=== PATIENT | female | born 1975 ===

== ENCOUNTER 2016-11-01 17:56 | Emergency (ER) | payer OTHER, SELFPAY ==
[2016-11-01 18:12] VITALS: BP 126/79; PULSE 72; RESP 18; TEMP 98.7; O2SAT 99
--- NOTE | 2016-11-01 18:29 | ED PDOC ---
HPI: Back Time Seen by Provider: 11/01/16 18:13 Chief Complaint (Nursing): Back Pain Chief Complaint (Provider): Back pain History Per: Patient History/Exam Limitations: no limitations Onset/Duration Of Symptoms: Days (1) Current Symptoms Are (Timing): Still Present Quality Of Discomfort: "Pain" Additional Complaint(s): 40 y/o female presents to the ED for evaluation of lower back pain since yesterday. Patient reports she was reaching for a box on a high shelf and she twisted her body causing pain to low back. She reports taking over the counter Aly's for her pain with has helped only minimally. She denies any numbness, tingling, and offers no additional medical complaints. Patient states that pain does not radiate to legs and patient denies any acute bowel or bladder dysfunction. Past Medical History Reviewed: Historical Data, Nursing Documentation, Vital Signs Vital Signs: Last Vital Signs Temp 98.7 F 11/01/16 18:08 Pulse 72 11/01/16 18:08 Resp 18 11/01/16 18:08 BP 126/79 11/01/16 18:08 Pulse Ox 99 11/01/16 18:08 - Medical History PMH: No Chronic Diseases - Surgical History Surgical History: - Family History Family History: States: No Known Family Hx - Living Arrangements Living Arrangements: With Family - Social History Current smoker - smoking cessation education provided: No Alcohol: None Drugs: Denies - Home Medications Home Medications: Ambulatory Orders Medication Instructions Recorded Omeprazole Magnesium [Prilosec Otc] 20 mg PO QD5 #30 tcp 01/12/14 Cyclobenzaprine [Cyclobenzaprine 10 mg PO TID PRN #20 tab 11/01/16 HCl] Naproxen [Naprosyn] 500 mg PO BID #20 tab 11/01/16 - Allergies Allergies/Adverse Reactions: Allergies Allergy/AdvReac Type Severity Reaction Status Date / Time No Known Allergies Allergy Verified 01/12/14 12:48 Review of Systems ROS Statement: Except As Marked, All Systems Reviewed And Found Negative Musculoskeletal: Positive for: Back Pain (s/p twisting injury sustained yesterday) Neurological: Negative for: Numbness Physical Exam - Reviewed Nursing Documentation Reviewed: Yes Vital Signs Reviewed: Yes - Physical Exam Appears: Positive for: Well, Non-toxic, No Acute Distress Head Exam: Positive for: ATRAUMATIC, NORMAL INSPECTION, NORMOCEPHALIC Skin: Positive for: Normal Color, Warm, DRY Eye Exam: Positive for: Normal appearance Neck: Positive for: Normal Cardiovascular/Chest: Positive for: Regular Rate, Rhythm Respiratory: Positive for: Normal Breath Sounds. Negative for: Respiratory Distress Back: Positive for: Other (midline lumbar tenderness with no step off, negative bilateral straight leg raise). Negative for: L CVA Tenderness, R CVA Tenderness Extremity: Negative for: Deformity, Swelling Neurologic/Psych: Positive for: Alert, Oriented - Laboratory Results Urine POC: Negative - ECG O2 Sat by Pulse Oximetry: 99 (RA) Pulse Ox Interpretation: Normal - Other Rad L/S Spine X-ray X-Ray: Interpreted by Me, Viewed By Me X-Ray Interpretation: no fx, no dis Medical Decision Making Medical Decision Making: Time: 1819 Impression: low back pain Plan: * XR Lumbar spine * Flexeril 10 mg PO * Toradol 30 mg IM * UDip * Reassess Patient feels better after meds given. She is aware of x-ray results. All questions answered. Patient given prescriptions for Naprosyn and Flexeril. She was advised to follow-up with orthopedist, referral provided. Scribe Attestation: Documented by Amara Bashir acting as a scribe for LUIS ENRIQUE Negron Provider Attestation: All medical record entries made by the Scribe were at my direction and personally dictated by me. I have reviewed the chart and agree that the record accurately reflects my personal performance of the history, physical exam, medical decision making, and the department course for this patient. I have also personally directed, reviewed, and agree with the discharge instructions and disposition. Disposition - Clinical Impression Clinical Impression: Back strain, Back pain - Patient ED Disposition Is Patient to be Admitted: No Counseled Patient/Family Regarding: Studies Performed, Diagnosis, Need For Followup, Rx Given - Disposition Referrals: [facility] [Outside] Dago Mallory III, MD [Staff Provider] - Disposition: Routine/Home Disposition Time: 19:27 Condition: STABLE Additional Instructions: Take rx med as directed as needed for pain. Follow up in 2-3 days with primary care doctor or with orthopedist. Prescriptions: Cyclobenzaprine [Cyclobenzaprine HCl] 10 mg PO TID PRN #20 tab PRN Reason: Muscle Spasm Naproxen [Naprosyn] 500 mg PO BID #20 tab Instructions: Back Pain (ED), Muscle Strain (ED) Forms: [facility] ED School/Work Excuse
--- NOTE | 2016-11-02 08:11 | RAD ---
PROCEDURE: Radiographs of the Lumbar Spine. HISTORY: trauma COMPARISON: No prior. FINDINGS: BONES: Normal alignment. No listhesis. No fracture. Partial sacralization of the last lumbar element. DISC SPACES: Unremarkable. OTHER FINDINGS: None. IMPRESSION: No acute findings related to/accounting for the clinical presentation. Concordant results with the preliminary interpretation rendered by the emergency department physician procedure.
== END 2016-11-01 20:15 | disposition home or self-care (01) ==
LOC: H.ER 17:56
DX: S39.012A Strain of muscle, fascia and tendon of lower back, initial encounter (principal); X50.9XXA Other and unspecified overexertion or strenuous movements or postures, initial encounter; Y99.0 Civilian activity done for income or pay
CPT/HCPCS: 72100; 81025; 96372; 99281; J1885

== ENCOUNTER 2017-06-08 20:34 | Emergency (ER) | payer OTHER, SELFPAY ==
[2017-06-08 20:44] VITALS: BP 120/81; PULSE 81; RESP 16; TEMP 98; O2SAT 99
--- NOTE | 2017-06-08 23:11 | ED PDOC ---
HPI: Eye Injury/Pain Time Seen by Provider: 06/08/17 20:49 Chief Complaint (Nursing): Eye Problem Chief Complaint (Provider): Bilateral eye pain after washing bathroom with bleach History Per: Patient History/Exam Limitations: no limitations Onset/Duration Of Symptoms: Hrs Current Symptoms Are (Timing): Still Present Additional Complaint(s): 41 yo female with no medical problems presents with bilateral eye pain since washing bathroom with windows closed. Past Medical History Reviewed: Historical Data, Nursing Documentation, Vital Signs Vital Signs: Last Vital Signs Temp 98.0 F 06/08/17 20:43 Pulse 81 06/08/17 20:43 Resp 16 06/08/17 20:43 BP 120/81 06/08/17 20:43 Pulse Ox 99 06/08/17 20:43 - Medical History PMH: No Chronic Diseases - Surgical History Surgical History: - Family History Family History: States: Unknown Family Hx - Living Arrangements Living Arrangements: With Family - Social History Current smoker - smoking cessation education provided: No - Home Medications Home Medications: Ambulatory Orders Medication Instructions Recorded Omeprazole Magnesium [Prilosec Otc] 20 mg PO QD5 #30 tcp 01/12/14 Cyclobenzaprine [Cyclobenzaprine 10 mg PO TID PRN #20 tab 11/01/16 HCl] Naproxen [Naprosyn] 500 mg PO BID #20 tab 11/01/16 - Allergies Allergies/Adverse Reactions: Allergies Allergy/AdvReac Type Severity Reaction Status Date / Time No Known Allergies Allergy Verified 06/08/17 20:43 Review of Systems ROS Statement: Except As Marked, All Systems Reviewed And Found Negative Constitutional: Negative for: Fever, Chills Respiratory: Negative for: Cough, Shortness of Breath Gastrointestinal: Negative for: Nausea, Vomiting, Abdominal Pain Physical Exam - Reviewed Nursing Documentation Reviewed: Yes Vital Signs Reviewed: Yes - Physical Exam Appears: Positive for: Well, Non-toxic, No Acute Distress Head Exam: Positive for: ATRAUMATIC, NORMAL INSPECTION, NORMOCEPHALIC Skin: Positive for: Normal Color, Warm, DRY Eye Exam: Positive for: Normal appearance, EOMI, PERRL, Other (Mild injection) ENT: Positive for: Normal ENT Inspection Neck: Positive for: Normal, Painless ROM Cardiovascular/Chest: Positive for: Regular Rate, Rhythm Respiratory: Positive for: Normal Breath Sounds. Negative for: Accessory Muscle Use, Respiratory Distress Gastrointestinal/Abdominal: Positive for: Normal Exam, Bowel Sounds, Soft Back: Positive for: Normal Inspection Extremity: Positive for: Normal ROM Neurologic/Psych: Positive for: Alert, Oriented - ECG O2 Sat by Pulse Oximetry: 99 Medical Decision Making Medical Decision Making: Tetracaine drops used to help with pain. Eyes irrigated as tolerated. Motrin PO given. THANG Boone discussed with poison control. Disposition - Clinical Impression Clinical Impression: Eye irritation - Patient ED Disposition Is Patient to be Admitted: No Counseled Patient/Family Regarding: Diagnosis, Need For Followup - Disposition Referrals: Austen Winston MD [Staff Provider] - Disposition: Routine/Home Disposition Time: 23:13 Condition: GOOD Instructions: Dry Eye
== END 2017-06-09 00:18 | disposition home or self-care (01) ==
LOC: H.ER 20:34
DX: H57.8 Other specified disorders of eye and adnexa (principal)